=== PATIENT | female | born 1985 | race Caucasian/White ===

== ENCOUNTER → 2024-02-29 15:41 | Outpatient (BNVA) | payer OTHER, SELFPAY | PROVIDERS: PCP Internal Medicine; Visit Provider Internal Medicine | DX: G47.33 Obstructive sleep apnea (adult) (pediatric) (principal); R40.0 Somnolence; M26.19 Other specified anomalies of jaw-cranial base relationship; R06.83 Snoring; E66.9 Obesity, unspecified; Z68.31 Body mass index [BMI] 31.0-31.9, adult | CPT/HCPCS: 99202 ==

== ENCOUNTER → 2024-06-07 09:00 | Outpatient (REF) | payer OTHER, SELFPAY ==
--- OUTSIDE RECORDS SUMMARY | 2024-06-07 23:17 | XMS_ITS ---
Author Organization Pankaj Morgan DO, FACP Address [address], [place] [phone] Care Team Providers Care Heating Systems Installer Name Role Phone Pankaj Morgan Primary Care Provider [phone] REASON FOR VISIT Message Encounters Encounter Location Date Provider Diagnosis Pankaj Morgan DO, FACP [address] [place] [phone] 04/07/2023 Pankaj Morgan PLAN OF TREATMENT No Information
--- OUTSIDE RECORDS SUMMARY | 2024-06-07 23:17 | XMS_ITS | Patient Health Record ---
Author Organization Pankaj Morgan DO, FACP Address [address], [place] [id number] Care Team Providers Care Editor Managing Director Name Role Phone Pankaj Morgan Primary Care Provider ALLERGIES No Known Allergies REASON FOR REFERRAL Reason Snoring/Apneic episo sen/Daytime fatigue Diagnosis 1 Encounter for [facility] adult medical examination without abnormal findings (Z00.00) Referral Organization Pankaj Marr O, FACP Referring Provider First Name Pankaj Referring Provider Last Name Cathy Referring Provider Speciality Internal M edicine Referred Provider Vitaliy Ward Referred Provider Specialty Pulmonary Di seases General Notes Gilda Ray 4 03:01:35 PM EDT > Referral sent and patient aware of appointment date and time. Referral Priority Routine MEDICATIONS Medication SIG (Take, Route, Fr equency, Duration) Notes Start Date End Date Status Progesterone 200 MG 1 capsule at bedtime Orally Once a day Active Multivitamin Women - 1 tablet Orally Once a day Active Estradiol 0.025 MG/24HR 1 patch to skin Transdermal Once a Week Active IMMUNIZATIONS Vaccine Route Administration Date Status Comme nts Influenza Quad IM Intramuscular 05/02/2015 Administered Influenza Quad Unknown 04/04/2020 Administered flu vaccine Unknown 04/10/2013 Administered Influenza Quad Unknown 05/09/2019 Administered MMR Unknown 05/31/1996 Administered MMR Unknown 08/07/1985 Administered Influenza Quad Unknown 04/13/2021 Administered COVID-19 Moderna Bivalent Unknown 05/06/2022 Administer ed TDaP Unknown 11/12/2016 Administered COVID-19 Pfizer BioNTech Unknown 06/03/2021 Administere d Influenza Quad Unknown 03/26/2017 Administered Influenza Quad Unknown 04/28/2018 Administered Influenza Quad Unknown 05/06/2022 Administered COVID-19 Pfizer BioNTech Unknown 10/19/2020 Administere d COVID-19 Pfizer BioNTech Unknown 09/27/2020 Administere d TDaP Unknown 12/23/2011 Administered SOCIAL HISTORY Tobacco Use: Social History Observation Description Date Details (start date - stop date) Never Smoker NA - NA Sex Assigned At : Social History Observation Description Sex Assigned At Unknown Tobacco Use/Smoking Question Answer Notes Patient is a nonsmoker Additional Findings: Tobacco Non-User Cu rrent non-smoker, currently using no form of tobacco Alcohol Screen Question Answer Notes Did you have a drink contain ing alcohol in the past year? Yes How often did you have a dri nk containing alcohol in the past year? 2 to 4 times a month (2 points) How many drinks did you have on a typical day when you were drinking in the past year? 1 or 2 drinks (0 point) How often did you have 6 or more drinks on one occasion in the past year? Never (0 point) Points 2 Interpretation Negative PROBLEMS Problem Type ICD Code Onset Dates Problem Status W/U Status Risk SNOMED Code Notes Problem Routine general medical examination at a health care facility (V70.0) Active confirmed 580527047 VITAL SIGNS Blood pressure diastolic 60 mm Hg 02/09/2024 Height 65.00 in 02/09/2024 Blood pressure systolic 104 mm Hg 02/09/2024 Weight 178 lbs 02/09/2024 BMI 29.62 kg/m2 02/09/2024 Encounters Encounter Location Date Provider Diagnosis Pankaj Morgan DO, [facility] [address], [place] [phone] 02/09/2024 Pankaj Morgan Encounter for genera l adult medical examination without abnormal findings Z00.00 Pankaj Morgan DO, [facility] [address], [place] [phone] 05/23/2024 Pankaj Morgan ASSESSMENTS Encounter Date Diagnosis Assessment Notes Treatment Notes Treatment Clinical Notes 02/09/2024 Encounter for general adult medical examination without abnormal findings (ICD-10 - Z00.00) Advise Weight Watchers for weight loss. Advise not staying on HRT too long. She will discuss this further with her ADVERTISING WRITER. PLAN OF TREATMENT Pending Test Test Name Order Date CBC w DIFF 02/09/2024 TSH (THYROID STIMULATING HORMONE) 2023 MAMMOGRAM DIGITAL BILATERAL SCREEN G0202 02/09/2024 VITAMIN D 25-OH TOTAL 02/09/2024 Liver Panel 02/09/2024 Basic Metabolic Panel Fasting 02/09/2024 Lipid Panel 02/09/2024 Insurance Providers Payer Name Payer Address Payer Phone Subscriber Number Group Number Insured Name Patient Relationship to Insured Coverage Start Date Coverage End Date [facility] [place] [facility] [address] [address] [place] [phone] [id number] Jeffrey Villafuerte Spouse - patient is the spouse of the insured MEDICAL (GENERAL) HISTORY Medical History History ICD Code depression anxiety thyroid cysts Surgical History Surgery Date(Month/Year) wisdom teeth extraction
--- OUTSIDE RECORDS SUMMARY | 2024-06-07 23:17 | XMS_ITS ---
Author Organization Pankaj Morgan DO, FACP Address [address] [place], [place] [phone] Care Team Providers Care Incoming Freight Clerk Name Role Phone Pankaj Morgan Primary Care Provider ALLERGIES No Known Allergies REASON FOR REFERRAL Reason Snoring/Apneic episo sen/Daytime fatigue Diagnosis 1 Encounter for [facility] adult medical examination without abnormal findings (Z00.00) Referral Organization Pankaj Marr O, FACP Referring Provider First Name Pankaj Referring Provider Last Name Cathy Referring Provider Speciality Internal M edicine Referred Provider Vitaliy Ward Referred Provider Specialty Pulmonary Di seases General Notes Gilda Ray 4 03:01:35 PM EDT > Referral sent and patient aware of appointment date and time. Referral Priority Routine REASON FOR VISIT physical, annual visit MEDICATIONS Medication SIG (Take, Route, Fr equency, Duration) Notes Start Date End Date Status Progesterone 200 MG 1 capsule at bedtime Orally Once a day Active Multivitamin Women - 1 tablet Orally Once a day Active Estradiol 0.025 MG/24HR 1 patch to skin Transdermal Once a Week Active SOCIAL HISTORY Tobacco Use: Social History Observation [...] Never (0 point) Points 2 Interpretation Negative VITAL SIGNS BMI 29.62 kg/m2 02/09/2024 Blood pressure systolic 104 mm Hg 02/09/20 24 Blood pressure diastolic 60 mm Hg 024 Height 65.00 in 02/09/2024 Weight 178 lbs 02/09/2024 Encounters Encounter Location Date Provider Diagnosis Pankaj Sanna Morgan DO, FACP [address] [place] [phone] 02/09/2024 Pankaj Morgan Encounter for genera l adult medical examination without abnormal findings Z00.00 ASSESSMENTS Encounter Date Diagnosis Assessment Notes Treatment Notes Treatment Clinical Notes 02/09/2024 Encounter for general adult medical examination without abnormal findings (ICD-10 - Z00.00) Advise Weight Watchers for weight loss. Advise not staying on HRT too long. She will discuss this further with her IT TRAINING SPECIALIST. PLAN OF TREATMENT Medication Medication Name Sig Start Date Stop Date Notes Progesterone 200 MG 1 capsule at bedtime Orally Once a day Multivitamin Women - 1 tablet Orally Once a day Estradiol 0.025 MG/24HR 1 patch to skin Transdermal Once a Week Treatment Notes Assessment Notes Encounter for general adult medical examination without abnormal findings Advise Weight Watchers for weight loss. Advise not staying on HRT too long. She will discuss this further with her IT TRAINING SPECIALIST. Pending Test Test Name Order Date CBC w DIFF 02/09/2024 TSH (THYROID STIMULATING HORMONE) 2023 MAMMOGRAM DIGITAL BILATERAL SCREEN G0202 02/09/2024 VITAMIN D 25-OH TOTAL 02/09/2024 Liver Panel 02/09/2024 Basic Metabolic Panel Fasting 02/09/2024 Lipid Panel 02/09/2024 Referrals Referral Date Details Snoring/Apneic episo sen/Daytime fatigue, Vitaliy Ward Next Appt Details Follow Up: 3 Months, Reason: follow up visit Progress Notes * Examination Category Sub-Category Detail Notes General Examination GENERAL APPEARANCE: well dev eloped, well nourished, in no acute distress HEAD: normocephalic, atrau matic EYES: sclera non-icteric NECK/THYROID: neck supple, full ra nge of motion, no cervical lymphadenopathy, thyroid normal, no carotid bruit HEART: regular rate and rhy thm, S1, S2 normal, no murmurs LUNGS: clear to auscultatio n bilaterally ABDOMEN: soft, nontender, non distended, bowel sounds present, normal NEUROLOGIC: nonfocal, motor stre ngth normal upper and lower extremities, sensory exam intact SKIN: warm and dry EXTREMITIES: no clubbing, cyanosi s, or edema PERIPHERAL PULSES: 2+ dorsalis pedis, 2 + posterior tibial BREASTS: per IT TRAINING SPECIALIST PSYCH: alert, oriented, cog nitive function intact FEMALE GENITOURINARY: per IT TRAINING SPECIALIST History and Physical Notes * HPI (History of Present Illness) Category Sub-Category Detail Notes Depression Screening PHQ-9 Little inte rest or pleasure in doing things: Not at all Feeling down, depressed, or hopeless: No t at all Trouble falling or staying asleep, or sl eeping too much: Not at all Feeling tired or having little energy: N ot at all Poor appetite or overeating: Not at all Feeling bad about yourself o r that you are a failure, or have let yourself or your family down: Not at all Trouble concentrating on thi ngs, such as reading the newspaper or watching television: Not at all Moving or speaking so slowly that other people could have noticed; or the opposite, being so fidgety or restless that you have been moving around a lot more than usual: Not at all Thoughts that you would be b samantha off or of hurting yourself in some way: Not at all Total Score: 0 Interpretation and Intervention Depression Michele mcgregor Findings: Negative Follow-Up for Depression: : Review of PH Q-9 found negative result; no follow-up needed Fall Risk Fall History Have you had two or more fal ls in the past year?: No Have you had any falls with injury in th e past year?: No Fall Risk Assessment:: One fall without injury in the past year Communication Needs PCMH Communication Needs - PCMH He aring Impairment?: No Vision Impairment?: Yes wears glasses fo r distance Cognitive Impairment?: No SDOH Questions SDOH Questions In the past year have you been worried about losing your housing?: No In the past year have you or any family members you live with been unable to get any of the following when it was really needed? Check all that apply:: None Consultation Request Notes Referral Date Referring Provider Referred Provider Not es 02/09/2024 Pankaj Morgan Mohammad Snoring/A pneic episodes/Daytime fatigue
--- OUTSIDE RECORDS SUMMARY | 2024-06-07 23:17 | XMS_ITS ---
Author Organization Pankaj Morgan DO, FACMauro Address [address] [place], [place] [phone] Care Team Providers Care Toddler Caregiver Name Role Phone Pankaj Morgan Primary Care Provider REASON FOR VISIT 3 month f/u Encounters Encounter Location Date Provider Diagnosis Pankaj Morgan DO, FACP [address] [place] [phone] 05/23/2024 Pankaj Morgan PLAN OF TREATMENT No Information
== END ==
LOC: HO.SL 09:00
PROVIDERS: PCP Internal Medicine; Visit Provider Internal Medicine
DX: R40.0 Somnolence (principal); M26.19 Other specified anomalies of jaw-cranial base relationship; R06.83 Snoring; G47.33 Obstructive sleep apnea (adult) (pediatric)
CPT/HCPCS: 95806

== ENCOUNTER → 2024-06-07 09:09 | Outpatient (BNV) | payer OTHER, SELFPAY | PROVIDERS: PCP Internal Medicine; Visit Provider Internal Medicine | DX: R06.83 Snoring (principal); G47.10 Hypersomnia, unspecified | CPT/HCPCS: 95806 ==

== ENCOUNTER 2024-10-16 11:03 | Outpatient (AMB) | payer OTHER, SELFPAY ==
[2024-10-16 11:15] VITALS: BP 124/70; PULSE 78; RESP 14; TEMP 36.4; O2SAT 98; BMI 31.2
--- NOTE | 2024-10-16 11:15 | A.OFFPC_ITS ---
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 Required: No Accompanied by: Self / Same As Patient Allergies No Known Allergies Allergy (Verified 10/16/24 12:36) Medication List - Last Reconciled 10/16/24 by Kemi Choe PA-C estradiol patches transdermal progesterone micronized 200 mg PO BEDTIME Tobacco use date assessed: 10/16/24 Dental Screening Dental Screen Date: 10/16/24 Did you have a dental visit in the last 12 months?: Yes Did you have a dental problem in the last 6 months where you did not have access to dental care?: No Was dental information given to patient?: Patient has dentist HPI PE HPI Details The patient is a 39-year-old female presenting for a routine physical examination. She sought to establish care and complete pending laboratory work initially ordered by Dr. Morgan. 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 While there is a family history of thyroid cancer, she reports a normal thyroid ultrasound conducted several years ago. Additionally, the patient confirms the absence of thyroid nodules and overall robust health with no significant medication regimen except for hormone therapy. Social history - Family planning: Utilizing hormone the rapy for perimenopausal symptom management. [facility] Medical History (Updated 10/16/24 @ 12:39 by Kemi Choe PA-C) Perimenopausal Class 1 obesity with body mass index (BMI) of 31.0 to 31.9 in adult Establishing care with new doctor, encounter for Annual physical exam Family history of thyroid cancer SUMAN (obstructive sleep apnea) Snoring Obesity (BMI 30-39.9) Retrognathia Somnolence, daytime Family History Father No problems noted. Mother Thyroid cancer Social History Housing: House Alcohol intake: current Alcohol intake frequency: holidays/special occasions only Patient Tobacco Use Status: Never used Tobacco service: No Current occupational status: employed Cognitive needs: No Hearing needs: No Vision needs: Yes (rx glasses) Questionnaire PHQ-9 Over the last 2 weeks, how often have you been bothered by any of the following problems? 1. Little interest or pleasure in doing things: not at all 2. Feeling down, depressed, or hopeless: not at all 3. Trouble falling or staying asleep, or sleeping too much: not at all 4. Feeling tired or having little energy: not at all 5. Poor appetite or overeating: not at all 6. Feeling bad about yourself - or that you are a failure or have let yourself or your family down: not at all 7. Trouble concentrating on things, such as reading the newspaper or watching television: not at all 8. Moving or speaking so slowly that other people could have noticed. Or the opposite - being so fidgety or restless that you have been moving around a lot more than usual: not at all 9. Thoughts that you would be better off or of hurting yourself in some way: not at all Total score: 0 Depression Screening Interpretation: Negative Depression Screening Done: Yes 73976 - PHQ-9 Billing: Yes Source: Developed by Drs. Pankaj Gill, Marylou Baer, Thierno Ortiz and colleagues, with an educational marcel from [email or web address]. Thrive Questionnaire Date Thrive assessed: 10/16/24 I am a: Patient What is your living situation today?: I have a steady place to live Within the past 12 months, did the food you bought not last and you didn't have the money to get more?: Never true Within the past 12 months, did you worry whether your food would run out before you got money to buy more?: Never true Do you have trouble paying for medicines?: No Do you have trouble getting transportation to medical appointments?: No Do you have trouble paying your heating and electricity bill?: No Do you have trouble taking care of your child, family member or friend?: No Do you have trouble with day-to-day activities such as bathing, preparing meals, shopping, managing finances, etc.?: No Are you currently unemployed and looking for a job?: No Are you interested in more education?: No Please select the resources that you would like help with: None THRIVE Score: 0 AUDIT C Alcohol Use Questionnaire (AUDIT-C) 1. How often do you have a drink containing alcohol?: Monthly or less 2. How many drinks containing alcohol do you have on a typical day when you are drinking?: 1 or 2 3. How often do you have six or more drinks on one occasion?: Never Total Score: 1 Score Reviewed/Action Taken: No WINNIE-7 AMB Questionnaire WINNIE-7 Date WINNIE - 7 assessed: 10/16/24 Feeling nervous, anxious, or on edge: 0 = Not at all Not being able to stop or control worryin = Not at all Worrying too much about different things: 0 = Not at all Trouble relaxin = Not at all Being so restless that it is hard to sit still: 0 = Not at all Becoming easily annoyed or irritable: 0 = Not at all Feeling afraid as if something awful might happen: 0 = Not at all Total WINNIE-7 score (0-4 normal; 5-9 mild; 10-14 moderate; 15-21 severe): 0 Source: Developed by Drs. Pankaj Gill, Marylou Baer, Thierno Ortiz and colleagues, with an educational marcel from [email or web address]. WINNIE-7 Assessment Billing WINNIE-7 Assessment Tool: WINNIE-7 Assessment 93585 Review of Systems Const Details: - General: Denies fatigue or unexpected weight gain/loss. - Endocrine: Reports use of hormonal therapy for perimenopause. - Gastrointestinal: Denies abdominal pain, changes in bowel habits, or unexplained weight changes. - Respiratory: Denies shortness of breath. - Cardiovascular: Denies chest pain. - Neurological: Denies dizziness or headaches. - Psychiatric: Reports anxiety possibly related to medication. Physical exam (Primary Care) Vital Signs: Last Vital Signs Temp 97.6 F 10/16/24 11:15 Pulse 78 10/16/24 11:15 Resp 14 10/16/24 11:15 BP 124/70 10/16/24 11:15 Pulse Ox 98 10/16/24 11:15 Oxygen Delivery Method Room Air 10/16/24 11:15 Care Plan Goal for BP management: <130/90 at Goal BMI result Body Mass Index 31.2 BMI Assessment/Plan discussion: High BMI High, discussed plan: lifestyle, weight reduction, dietary, physical activity and alcohol moderation Tobacco/Smoking Status: Tobacco use Status Tobacco use date assessed 10/16/24 10/16/24 11:22 Patient Tobacco Use Status Never used Tobacco 10/16/24 11:22 PHQ-9: PHQ-9 Score PHQ-9: Total score 0 10/16/24 11:25 Depression Screening Interpretation: Negative Thrive Assessment: Date of Thrive Assessment Date Thrive assessed 10/16/24 10/16/24 11:22 Const Other: Appearance: Alert. Oriented X3. No acute distress. Head: Normal external exam. Normocephalic. Atraumatic. Eyes: Pupils are equal, round, and reactive to light. Extraocular movements intact. Conjunctiva and sclera normal. Eyelids normal. Ears: External auditory canal normal. Tympanic membranes normal. Throat: Pharynx normal. Uvula midline. Moist mucous membranes. Neck: Normal inspection. Neck supple. Full range of motion. No adenopathy. Thyroid Normal. No meningeal signs. No neck mass noted. No nodules felt on thyroid palpation. Cardiovascular: Normal heart rate and rhythm. Heart sound normal. No murmurs noted. Pulses normal throughout. Respiratory: No respiratory distress. Painless inspiration. Breath sounds normal. No wheezes/rales/rhonchi noted. Chest nontender. No accessory muscle usage noted or decreased air movement noted. Abdomen: Soft and nontender. Bowel sounds normal in all 4 quadrants. No distention noted. No organomegaly noted. No visible injury noted. No weird belly pains reported. Back: No costovertebral angle tenderness. Full range of motion noted. No pain when tapping over the kidneys. Skin: Skin warm and dry. Normal skin color. Normal skin turgor. No rashes/lesions/lacerations noted. Extremities: No lower extremity edema. Extremities exhibit normal range of motion. Extremities nontender. No leg swelling reported. Neuro: Oriented X 3. No motor deficit. No sensory deficit. Reflexes normal. Coding Level of Care Code New Pt Level 4 (90498) Complex EM visit Add On G2211 Diagnoses Annual physical exam Z00.00 Family history of thyroid cancer Z80.8 Establishing care with new doctor, encounter for Z76.89 Class 1 obesity with body mass index (BMI) of 31.0 to 31.9 in adult E66.811; Z68.31 Perimenopausal N95.1 Additional Codes WINNIE-7 Assessment Billing - WINNIE-7 Assessment Tool: WINNIE-7 Assessment 13597 ([id number]) PHQ-9 - 07491 - PHQ-9 Billing: Yes ([id number]) Assessment & Plan Assessment & Plan (1) Annual physical exam: Code(s): Z00.00 - Encounter for general adult medical examination without abnormal findings Category: Medical Plan: Normal physical exam today. (2) Family history of thyroid cancer: Code(s): Z80.8 - Family history of malignant neoplasm of other organs or systems Category: Medical Plan: Will assess a TSH along with a thyroid ultrasound. Will continue to monitor. (3) Establishing care with new doctor, encounter for: Code(s): Z76.89 - Persons encountering health services in other specified circumstances Category: Medical Plan: Patient establishing care with a new doctor today. (4) Class 1 obesity with body mass index (BMI) of 31.0 to 31.9 in adult: Code(s): E66.811 - Obesity, class 1; Z68.31 - Body mass index [BMI] 31.0-31.9, adult Category: Medical Plan: Patient to improve her diet and exercise regimen. Condition is chronic and stable continue to monitor. (5) Perimenopausal: Code(s): N95.1 - Menopausal and female climacteric states Category: Medical Plan: Patient to continue being followed by OBGYN. Condition is chronic and stable continue to monitor. Plan Plan Patient was informed and verbally consented to the use of an ambient scribe for clinic note documentation during this visit. 1. Perimenopausal Syndrome The patient is being treated with estradiol and progesterone whose effectiveness will be checked by assessing hormone levels. Blood work will include estrogen, progesterone, and prolactin. 2. Family history of malignant neoplasm of other organs or systems Due to a family history, a screening thyroid ultrasound is advised alongside TSH tests to assess thyroid function. During today's visit, I discussed with the patient her current management plan for perimenopausal syndrome, ensuring she continues hormone therapy as prescribed by her nursing professor. We reviewed her family history of thyroid cancer and the plan to undergo a thyroid ultrasound as a preventative measure. We conversed about several lab tests to be conducted, including hormone level evaluations and general metabolic panels. I emphasized the importance of scheduling a mammogram per her nursing professor's order and advised her to confirm if [facility]'s referral is sufficient or if additional steps are required. Routine follow-up plans were agreed upon, depending on laboratory results, with yearly check-ins if results remain stable. Orders: Orders Progesterone Today Z00.00 - Encounter for general adult medical examination without abnormal findings Prolactin Today Z00.00 - Encounter for general adult medical examination without abnormal findings Erythrocyte Sedimentation Rate Today Z00.00 - Encounter for general adult medical examination without abnormal findings Estrogen Today Z.00 - Encounter for general adult medical examination without abnormal findings Hemoglobin A1c Today Z.00 - Encounter for general adult medical examination without abnormal findings Testosterone, Total Today Z. - Encounter for general adult medical examination without abnormal findings Complete Blood Count Auto Diff Today Z00.00 - Encounter for general adult medical examination without abnormal findings Comprehensive [place]. Panel Fast Today Z00.00 - Encounter for general adult medi julianna examination without abnormal findings C Reactive Protein Today Z.00 - Encounter for general adult medical examination without abnormal findings Lipid Panel Today Z00.00 - Encounter for general adult medical examination without abnormal findings Liver Panel Today Z00.00 - Encounter for general adult medical examination without abnormal findings Magnesium Today Z00.00 - Encounter for general adult medical examination without abnormal findings TSH reflex Free T4 Today Z00.00 - Encounter for general adult medical examination without abnormal findings Vitamin A Today Z00.00 - Encounter for general adult medical examination withou t abnormal findings Vitamin B1 Today Z00.00 - Encounter for general adult medical examination without abnormal findings Vitamin D 25-OH Total Today Z00.00 - Encounter for general adult medical examination without abnormal findings Zinc Today Z00.00 - Encounter for general adult medical examination without abnormal findings Vitamin B12 and Folate Today Z00.00 - Encounter for general adult medical examination without abnormal findings US thyroid Today Z80.8 - Family history of malignant neoplasm of other organs or systems Patient Instructions: - Complete fasting blood work as ordered, including hormone levels and metabolic panels. - Attend the scheduled thyroid ultrasound for screening. - Confirm mammogram scheduling with the healthcare provider. - Maintain hormone therapy as prescribed by the OPERATIONS SUPPORT ANALYST. - Follow up based on laboratory results and with any significant changes in health. - Expect routine check-ins annually unless advised otherwise depending on results.
== END 2024-10-16 11:43 | disposition home or self-care (01) ==
LOC: HO.HMCSH 11:03
PROVIDERS: PCP Internal Medicine; Visit Provider Physician Assistant Medical
DX: Z00.00 Encounter for general adult medical examination without abnormal findings (principal); Z80.8 Family history of malignant neoplasm of other organs or systems; Z76.89 Persons encountering health services in other specified circumstances; E66.811 Obesity, class 1; Z68.31 Body mass index [BMI] 31.0-31.9, adult; N95.1 Menopausal and female climacteric states

== ENCOUNTER → 2024-10-16 11:03 | Outpatient (BNVA) | payer OTHER, SELFPAY | PROVIDERS: PCP Internal Medicine; Visit Provider Physician Assistant Medical | DX: Z00.00 Encounter for general adult medical examination without abnormal findings (principal); Z76.89 Persons encountering health services in other specified circumstances; E66.811 Obesity, class 1; Z68.31 Body mass index [BMI] 31.0-31.9, adult; N95.1 Menopausal and female climacteric states; Z80.8 Family history of malignant neoplasm of other organs or systems | CPT/HCPCS: 96127; 99202 ==

== ENCOUNTER 2024-11-13 13:56 | Outpatient (REF) | payer OTHER, SELFPAY ==
--- NOTE | ~2024-11-13 | US_ITS ---
EXAMINATION: US THYROID HISTORY: Z80.8 - Family history of malignant neoplasm of other organs or systems TECHNIQUE: Real-time grayscale ultrasound imaging was performed and images were reviewed. COMPARISON: There are no prior studies for comparison. FINDINGS: SIZE: The right thyroid lobe measures 5.5 x 1.4 x 1.7 cm. The left thyroid lobe measures 6.1 x 1.5 x 1.5 cm. The isthmus measures 4 mm. FLOW: Flow to the gland is normal. ECHOGENICITY: The echotexture of the gland is homogeneous. NODULES: Multiple subcentimeter colloid cysts are noted bilaterally. No solid nodules are identified. US/US thyroid IMPRESSION: No suspicious nodules are identified. ACR TI-RADS Guidelines TR1 (0 points): Benign, No follow-up or biopsy required TR2 (2 points): Not Suspicious, No biopsy or follow up indicated TR3 (3 points): Mildly Suspicious, FNA if >= 2.5 cm, Follow if >= 1.5 cm TR4 (4-6 points): Moderately Suspicious, FNA if >= 1.5 cm, Follow if >= 1.0 cm TR5 (>=7 points): Highly Suspicious, FNA if >= 1.0 cm, Follow if >= 0.5 cm Electronically signed by: Pankaj Foster MD 11/13/2024 02:27 PM EDT
== END 2024-11-13 13:57 | disposition home or self-care (01) ==
LOC: HO.US 13:56
PROVIDERS: PCP Internal Medicine; Visit Provider Physician Assistant Medical
DX: Z80.8 Family history of malignant neoplasm of other organs or systems (principal)
CPT/HCPCS: 76536

== ENCOUNTER → 2024-11-13 13:58 | Outpatient (BNV) | payer OTHER, SELFPAY | PROVIDERS: PCP Internal Medicine; Visit Provider Radiology Diagnostic Radiology | DX: Z80.8 Family history of malignant neoplasm of other organs or systems (principal) | CPT/HCPCS: 76536 ==

== ENCOUNTER 2024-12-05 08:51 | Outpatient (REF) | payer OTHER, SELFPAY ==
[2024-12-05 09:10] LABS: MANUAL DIFF FLAG NO
[2024-12-05 09:47] LABS: Basophils Percent Auto 0.4 % (0-2); Eosinophils Absolute Auto 0.2 X10*3/uL (0.0-0.4); Eosinophils Percent Auto 2.4 % (0-4); Hematocrit 40.4 % (37.0-47.0); Hemoglobin 13.4 g/dl (12.0-16.0); Imm Gran Abs Auto 0.02 X10*3/uL (0.00-0.03); Imm Gran Pct Auto 0.3 % (0.0-0.4); Lymphocytes Absolute Auto 2.5 X10*3/uL (1.2-4.9); Lymphocytes Percent Auto 32.7 % (20-40); Mean Corpuscular HGB Conc 33.2 g/dl (31.0-35.0); Mean Corpuscular Hemoglobin 28.9 pg (27.0-33.0); Mean Corpuscular Volume 87.3 fL (80.0-98.0); Mean Platelet Volume 10.9 fL (9.4-12.3); Monocytes Absolute Auto 0.6 X10*3/uL (0.1-1.2); Monocytes Percent Auto 8.2 % (2-11); Neutrophils Absolute Auto 4.2 x10*3/uL (2.0-8.3); Platelet Count 271 X10*3/uL (160-400); Red Blood Count 4.63 X10*6/uL (4.20-5.50); Red Cell Distribution Width 13.2 % (11.0-16.0); White Blood Count 7.6 X10*3/uL (4.8-10.8)
[2024-12-05 09:56] LABS: Estimated Average Glucose 108 mg/dL; Hemoglobin A1C 122.2883 umol/L; Hemoglobin A1c % 5.4 % (<6.0)
[2024-12-05 10:39] LABS: Alanine Aminotransferase 16 U/L (0-31); Albumin Level 4.7 g/dL (3.5-5.0); Alkaline Phosphatase 96 U/L (39-117); Anion Gap 10 (12-20); Aspartate Amino Transferase 23 U/L (5-31); Bilirubin Direct 0.1 mg/dL (0.0-0.5); Bilirubin Total 0.4 mg/dL (0.0-1.0); Blood Urea Nitrogen 12 mg/dL (9-16); Calcium 9.2 mg/dL (8.4-10.2); Carbon Dioxide 28 mmol/L (22-29); Chloride 107 mmol/L (96-108); Cholesterol 183 mg/dL (<200); Estimated Glomerular Filt Rate > 60; Glucose Fasting 103 mg/dL (60-99); HDL Cholesterol 59 mg/dL (>40); LDL Cholesterol Calculated 97 mg/dL (<100); Magnesium 2.1 mg/dL (1.6-2.6); Sodium 141 mmol/L (135-145); Total Protein 7.6 g/dL (6.5-8.0); Triglycerides 135 mg/dL (<150)
[2024-12-05 10:40] LABS: Erythrocyte Sedimentation Rate 6 MM/HR (0-20); Vitamin D 25-OH Total 36.6 ng/mL (>30)
[2024-12-05 11:03] LABS: Folate 12.2 ng/mL (> or = 4.0); Vitamin B12 356 pg/mL (200-900)
[2024-12-06 04:38] LABS: Prolactin 5.1 ng/mL
[2024-12-09 00:49] LABS: Vitamin A 83 mcg/dL (38-98)
[2024-12-09 01:09] LABS: Zinc 82 mcg/dL (60-130)
[2024-12-09 16:03] LABS: Testosterone, Total 15 ng/dL (2-45)
[2024-12-09 16:53] LABS: Vitamin B1 11 nmol/L (8-30)
[2024-12-09 20:05] LABS: Estrogen 69 pg/mL
[2024-12-13 20:14] LABS: Progesterone 0.8 ng/mL
== END 2024-12-05 08:52 | disposition home or self-care (01) ==
LOC: HO.LAB 08:51
PROVIDERS: PCP Internal Medicine; Visit Provider Physician Assistant Medical
DX: Z00.00 Encounter for general adult medical examination without abnormal findings (principal)
CPT/HCPCS: 36415; 80053; 80061; 80076; 82248; 82306; 82607; 82672; 82746; 83036; 83735; 84144; 84146; 84403; 84425; 84443; 84590; 84630; 85025; 85652; 86140